=== PATIENT | female | born 1975 | race Caucasian/White ===

== ENCOUNTER 2018-12-28 10:04 | Emergency (ER) | payer BC, OTHER ==
[~2018-12-28] VITALS: Ht 152.4 cm; Wt 89.4 kg
[2018-12-28 10:08] VITALS: BP 136/95
--- NOTE | 2018-12-28 10:10 | NUR ---
Patient ambulated to bed 9. RN evaluating patient at bedside.
--- NOTE | 2018-12-28 10:15 | NUR ---
43 y/f bib self with c/o lower back pain worse last night with nausea accompanied with nocturia, denies dysuria. pt aaox4, vss, no trauma or injury, pt states may be a pulled muscle from gardening, 8/10 pain scale, bed low/locked, bed rail up x1, er md aware and notified of pt status. hx kidney stones
--- NOTE | 2018-12-28 11:26 | NUR ---
Dr. Finley evaluating pt at bedside.
[2018-12-28] MEDS ORDERED: NACL 0.9% 1,000 ML IV SCH (11:29)
[2018-12-28] MEDS ORDERED: KETOROLAC 30 MG/ML VIAL IVP ONE (11:30)
[2018-12-28] MEDS ORDERED: ONDANSETRON 4 MG/2 ML VIAL IVP ONE (11:30)
[2018-12-28] MEDS ORDERED: MORPHINE SULFATE 4 MG/ML SYR IVP ONE (11:30)
--- NOTE | 2018-12-28 11:31 | NUR ---
pt escorted to restroom via wheelchair
--- NOTE | 2018-12-28 11:37 | NUR ---
pt taken to ct
--- NOTE | 2018-12-28 11:49 | NUR ---
PT BACK FROM XRAY VIA W/C WITH [employer] AAOX4
--- NOTE | 2018-12-28 12:14 | NUR ---
pt states she does not want morphine at this time, will take toradol for pain
[2018-12-28 12:24] LABS: BASOPHILS # (AUTO) 0.1 K/uL (0.00-0.22); BASOPHILS % (AUTO) 0.6 % (0.0-2.0); EOSINOPHILS # (AUTO) 0.1 K/uL (0-0.4); EOSINOPHILS % (AUTO) 1.1 % (0.0-4.0); HEMATOCRIT 44.3 % (36-48); HEMOGLOBIN 14.6 g/dL (12.0-16.0); LYMPHOCYTES # (AUTO) 2.5 K/uL (2.5-16.5); LYMPHOCYTES % (AUTO) 29.1 % (20.5-51.1); MEAN CORPUSCULAR HEMOGLOBIN 30 pg (27-31); MEAN CORPUSCULAR HGB CONC 33 g/dL (33-37); MEAN CORPUSCULAR VOLUME 90.1 fL (80-94); MONOCYTES # (AUTO) 0.9 K/uL (0.8-1.0); MONOCYTES % (AUTO) 10.3 % (1.7-9.3); NEUTROPHILS % (AUTO) 58.9 % (42.2-75.2); PLATELET COUNT (AUTO) 294 K/uL (140-450); RED BLOOD CELL COUNT(AUTO) 4.92 MIL/uL (4.20-5.40); RED CELL DISTRIBUTION WIDTH 13.1 % (11.6-13.7); WHITE BLOOD COUNT (AUTO) 8.5 K/uL (4.8-10.8)
[2018-12-28 12:24] LABS: APPEARANCE,URINE CLEAR (CLEAR); BILIRUBIN,URINE NEGATIVE (NEGATIVE); BLOOD, URINE NEGATIVE (NEGATIVE); COLOR,URINE YELLOW (YELLOW); LEUKOCYTE ESTERASE ,URINE NEGATIVE (NEGATIVE); NITRITE, URINE NEGATIVE (NEGATIVE); UGLUCOSE NEGATIVE (NEGATIVE)
--- NOTE | 2018-12-28 12:28 | NUR ---
pt states she wants morphine iv now, pt was given morphine iv push
[2018-12-28 12:33] LABS: ANION GAP 14.9 (8-16); CARBON DIOXIDE 23.1 mmol/L (21-32); CREATININE 0.7 mg/dL (0.6-1.3)
[2018-12-28 12:39] LABS: ALBUMIN 3.8 g/dL (3.4-5.0); TOTAL BILIRUBIN 0.8 mg/dL (0.0-1.0)
[2018-12-28 14:39] VITALS: BP 133/80
--- NOTE | 2018-12-28 14:40 | NUR ---
Patient discharged with v/s stable. Written and verbal after care instructions given and explained. Patient alert, oriented and verbalized understanding of instructions. Ambulatory with steady gait. All questions addressed prior to discharge. ID band removed. Patient advised to follow up with PMD. Rx of METHOCARBAMOL, IBU given. Patient educated on indication of medication including possible reaction and side effects. Opportunity to ask questions provided and answered.
== END 2018-12-28 14:40 | disposition home or self-care (01) ==
LOC: MED 10:04
DX: R10.9 Unspecified abdominal pain (principal); R30.0 Dysuria; R11.0 Nausea; Z87.442 Personal history of urinary calculi
CPT/HCPCS: 36415; 74176; 80053; 81003; 81025; 83690; 85025; 87086; 96374; 96375; 99284; J1885; J2270; J2405; J7030